=== PATIENT | male | born 1960 | race Hispanic/Latino ===

== ENCOUNTER 2018-02-12 11:12 | Emergency (ER) | payer OTHER ==
[2018-02-12] MEDS ORDERED: NA CHLORIDE 0.9% 1,000 ML ONE (12:50)
[2018-02-12] MEDS ORDERED: ONDANSETRON 4 MG/2 ML VIAL ONE (12:50)
[2018-02-12] MEDS ORDERED: MORPHINE 4 MG/ML SYR ONE (12:51)
[2018-02-12 12:56] LABS: Absolute Lymphocytes (CBC) 2.3 K/uL (0.7-4.9); Absolute Monocytes 0.5 K/uL (0.1-1.3); Absolute Neutrophil 2.3 K/uL (1.8-8.0); Basophils % 1.1 % (0-1.3); Eosinophils % 5.1 % (0-4.4); Hematocrit 40.9 % (39.6-49.0); Lymphocytes % 42.5 % (15.3-44.8); MCH 33.2 pg (27.0-35.0); MCV 95.8 fL (80-100); MPV 8.3 fL (7.6-11.3); Monocytes % 9.5 % (3.3-12.3); RBC Red Blood Cell Count 4.27 M/uL (4.33-5.43)
--- NOTE | 2018-02-12 13:02 | RAD REPORT ---
EXAM DESCRIPTION: US - Abdomen Exam Limited - 02/12/2018 12:55 pm CLINICAL HISTORY: Abdominal pain. COMPARISON: None. FINDINGS: The gallbladder wall is not thickened. A gallstone is not seen. The biliary tree is normal caliber. IMPRESSION: Unremarkable gallbladder ultrasound.
[2018-02-12 13:12] LABS: Bilirubin Direct 0.1 mg/dL (0-0.2); Bilirubin Total 0.3 mg/dL (0.2-1.0); Potassium 4.3 mmol/L (3.5-5.1); Protein, Total 7.8 g/dL (6.4-8.2)
--- NOTE | 2018-02-12 14:08 | RAD REPORT ---
EXAM DESCRIPTION: CT - Abdomen Pelvis W Contrast - 02/12/2018 1:42 pm CLINICAL HISTORY: Abdominal pain/right upper quadrant pain COMPARISON: none. TECHNIQUE: Computed axial tomography of the abdomen pelvis was obtained. 100 cc Isovue-300 was admin istered intravenously. Oral contrast was not requested which limits evaluation of bowel. All CT scans are performed using dose optimization technique as appropriate and may include automated exposure control or mA/KV adjustment according to patient size. FINDINGS: The liver, spleen, pancreas, adrenal and kidneys appear unremarkable. There is no evidence of diverticulitis. The appendix is normal. Left inguinal hernia contains fat. The wall of the stomach appears mildly thickened IMPRESSION: Mild thickening of the wall of the stomach may be secondary to gastritis or incomplete d istention.
--- NOTE | 2018-02-12 14:54 | EDPHYS ---
Physician Documentation [facility] Name: Harry Chandler Age: 57 yrs Sex: Male : 1960 Arrival Date: 02/12/2018 Time: 11:14 Bed 17 Private MD: Out, [facility] ED Physician Elmer Kirby HPI: 02/12 13:33 This 57 yrs old Male presents to ER via Ambulatory with complaints of kb Abdominal Pain. 13:33 The patient has not experienced similar symptoms in the past. The patient has not kb recently seen a physician. 13:33 The patient presents with abdominal pain in the right upper quadrant. Onset: The kb symptoms/episode began/occurred 1 week(s) ago, and became worse. The symptoms do not radiate. Associated signs and symptoms: none. The symptoms are described as constant. Modifying factors: The symptoms are alleviated by nothing, the symptoms are aggravated by pressure. Severity of pain: At its worst the pain was moderate in the emergency department the pain is unchanged. Historical: - Allergies: 11:47 No Known Allergies; aj - Home Meds: 11:47 None [Active]; aj - PMHx: 11:47 None; aj - PSHx: 11:47 None; aj - Immunization history:: Adult Immunizations unknown. - Social history:: Smoking status: Patient/guardian denies using tobacco, Patient uses alcohol, weekly. - Ebola Screening: : Patient negative for fever greater than or equal to 101.5 degrees Fahrenheit, and additional compatible Ebola Virus Disease symptoms Patient denies exposure to infectious person Patient denies travel to an Ebola-affected area in the 21 days before illness onset No symptoms or risks identified at this time. ROS: 13:33 Constitutional: Negative for fever, chills, and weight loss, ENT: Negative for injury, kb pain, and discharge, Neck: Negative for injury, pain, and swelling, Cardiovascular: Negative for chest pain, palpitations, and edema, Respiratory: Negative for shortness of breath, cough, wheezing, and pleuritic chest pain, Back: Negative for injury and pain, : Negative for injury, bleeding, discharge, and swelling, MS/Extremity: Negative for injury and deformity, Skin: Negative for injury, rash, and discoloration, Neuro: Negative for headache, weakness, numbness, tingling, and seizure. 13:33 Abdomen/GI: Positive for abdominal pain, Negative for nausea, vomiting, and diarrhea. Exam: 13:33 Constitutional: This is a well developed, well nourished patient who is awake, alert, kb and in no acute distress. Head/Face: Normocephalic, atraumatic. Chest/axilla: Normal chest wall appearance and motion. Nontender with no deformity. No lesions are appreciated. Cardiovascular: Regular rate and rhythm with a normal S1 and S2. No gallops, murmurs, or rubs. Normal PMI, no JVD. No pulse deficits. Respiratory: Lungs have equal breath sounds bilaterally, clear to auscultation and percussion. No rales, rhonchi or wheezes noted. No increased work of breathing, no retractions or nasal flaring. Back: No spinal tenderness. No costovertebral tenderness. Full range of motion. Skin: Warm, dry with normal turgor. Normal color with no rashes, no lesions, and no evidence of cellulitis. MS/ Extremity: Pulses equal, no cyanosis. Neurovascular intact. Full, normal range of motion. Neuro: Awake and alert, GCS 15, oriented to person, place, time, and situation. Cranial nerves II-XII grossly intact. Motor strength 5/5 in all extremities. Sensory grossly intact. Cerebellar exam normal. Normal gait. 13:33 Abdomen/GI: Inspection: abdomen appears normal, Bowel sounds: normal, in all quadrants, Palpation: soft, in all quadrants, moderate abdominal tenderness, in the right upper quadrant. Vital Signs: 11:47 BP 141 / 88; Pulse 54; Resp 16; Temp 97.8; Pulse Ox 100% on R/A; Weight 79.38 kg; aj Height 5 ft. 7 in. (170.18 cm); 15:31 BP 136 / 88; Pulse 60; Resp 17; Temp 97.9; Pulse Ox 100% ; ja1 11:47 Body Mass Index 27.41 (79.38 kg, 170.18 cm) aj MDM: 12:21 Patient medically screened. kb 13:33 Data reviewed: vital signs, nurses notes. Data interpreted: Pulse oximetry: on room air kb is 100 %. Interpretation: normal. 14:41 Counseling: I had a detailed discussion with the patient and/or guardian regarding: the kb historical points, exam findings, and any diagnostic results supporting the discharge/admit diagnosis, lab results, radiology results, the need for outpatient follow up, a family practitioner, to return to the emergency department if symptoms worsen or persist or if there are any questions or concerns that arise at home. 02/12 12:24 Order name: Amylase, Serum; Complete Time: 13:22 kb 02/12 12:24 Order name: Basic Metabolic Panel; Complete Time: 13:22 kb 02/12 12:24 Order name: CBC with Diff; Complete Time: 13:02 kb 02/12 12:24 Order name: Hepatic Function; Complete Time: 13:22 kb 02/12 12:24 Order name: Lipase; Complete Time: 13:22 kb 02/12 12:45 Order name: Urine Dipstick--Ancillary (enter results); Complete Time: 15:27 eb 02/12 12:24 Order name: IV Saline Lock; Complete Time: 12:43 kb 02/12 12:24 Order name: Labs collected and sent; Complete Time: 12:43 kb 02/12 12:28 Order name: US Abdomen Limited; Complete Time: 13:03 kb 02/12 13:23 Order name: CT Abd/Pelvis - W/Contrast; Complete Time: 14:13 kb 02/12 12:24 Order name: Urine Dipstick-Ancillary (obtain specimen); Complete Time: 14:02 kb Administered Medications: 13:10 Drug: Zofran 4 mg Route: IVP; Site: right antecubital; ja1 15:32 Follow up: Response: Nausea is decreased ja1 13:10 Drug: morphine 4 mg Route: IVP; Site: right antecubital; ja1 15:32 Follow up: Response: Pain is decreased ja1 13:24 Drug: NS 0.9% 1000 ml Route: IV; Rate: 1000 ml; Site: right antecubital; ja1 14:30 Follow up: IV Status: Completed infusion iw 15:30 Drug: ProTONIX 40 mg Route: IVP; Site: right antecubital; ja1 15:50 Follow up: Response: No adverse reaction iw Disposition: 18:15 Co-signature as Attending Physician, Elmer Kirby MD I agree with the assessment and kdr plan of care. Disposition: 02/12/18 14:54 Discharged to Home. Impression: Upper abdominal pain, unspecified. - Condition is Stable. - Discharge Instructions: Abdominal Pain, Adult, [id number]. - Prescriptions for Bentyl 20 mg Oral Tablet - take 1 tablet by ORAL route every 6 hours As needed; 20 tablet. - Medication Reconciliation Form, Thank You Letter, Antibiotic Education, Prescription Opioid Use form. - Follow up: Emergency Department; When: As needed; Reason: Worsening of condition. Follow up: Private Physician; When: 2 - 3 days; Reason: Recheck today's complaints, Continuance of care, Re-evaluation by your physician. Signatures: Dispatcher [employer] EDMS Aria Bennett, SPEECH ASSISTANT-C SPEECH ASSISTANT-CkTejal Trejo, RN RN aj Elmer Kirby MD MD kdr Williams, Irene, RN RN iw Livan Wynn RN RN ja1 Corrections: (The following items were deleted from the chart) 15:54 14:54 02/12/2018 14:54 Discharged to Home. Impression: Upper abdominal pain, iw unspecified. Condition is Stable. Discharge Instructions: Abdominal Pain, Adult, Kwhe-ow-Tyia. Prescriptions for Bentyl 20 mg Oral Tablet - take 1 tablet by ORAL route every 6 hours As needed; 20 tablet. and Forms are Medication Reconciliation Form, Thank You Letter, Antibiotic Education, Prescription Opioid Use. Follow up: Emergency Department; When: As needed; Reason: Worsening of condition. Follow up: Private Physician; When: 2 - 3 days; Reason: Recheck today's complaints, Continuance of care, Re-evaluation by your physician. kb
--- NOTE | 2018-02-12 14:54 | ER ---
Nurse's Notes [facility] Name: Harry Chandler Age: 57 yrs Sex: Male : 1960 Arrival Date: 02/12/2018 Time: 11:14 Bed 17 Private MD: Out, [facility] Diagnosis: Upper abdominal pain, unspecified Presentation: 02/12 11:46 Presenting complaint: Patient states: RUQ abdominal pain that started 1 week ago. aj Reports pain is not affected by eating. Denies N/V. Transition of care: patient was not received from another setting of care. Onset of symptoms was February 06, 2018. Risk Assessment: Do you want to hurt yourself or someone else? Patient reports no desire to harm self or others. Initial Sepsis Screen: Does the patient meet any 2 criteria? No. Patient's initial sepsis screen is negative. Does the patient have a suspected source of infection? No. Patient's initial sepsis screen is negative. Care prior to arrival: None. 11:46 Method Of Arrival: Ambulatory 11:46 Acuity: TITA 3 Triage Assessment: 11:47 General: Appears in no apparent distress. comfortable, Behavior is calm, cooperative, aj appropriate for age. Pain: Complains of pain in right upper quadrant. Neuro: Level of Consciousness is awake, alert, obeys commands, Oriented to person, place, time, situation, Appropriate for age. Respiratory: Airway is patent Respiratory effort is even, unlabored, Respiratory pattern is regular, symmetrical. GI: Abdomen is tender to palpation in epigastric area and right upper quadrant Reports upper abdominal pain. Derm: Skin is intact, is healthy with good turgor, Skin is pink, warm \T\ dry. normal. Historical: - Allergies: 11:47 No Known Allergies; aj - Home Meds: 11:47 None [Active]; aj - PMHx: 11:47 None; aj - PSHx: 11:47 None; aj - Immunization history:: Adult Immunizations unknown. - Social history:: Smoking status: Patient/guardian denies using tobacco, Patient uses alcohol, weekly. - Ebola Screening: : Patient negative for fever greater than or equal to 101.5 degrees Fahrenheit, and additional compatible Ebola Virus Disease symptoms Patient denies exposure to infectious person Patient denies travel to an Ebola-affected area in the 21 days before illness onset No symptoms or risks identified at this time. Screenin:50 Abuse screen: Denies threats or abuse. Denies injuries from another. Nutritional iw screening: No deficits noted. Tuberculosis screening: No symptoms or risk factors identified. Fall Risk Assessment: 14:30 General: Appears in no apparent distress. comfortable, Behavior is calm, cooperative. iw Pain: Complains of pain in epigastric area and right upper quadrant. Neuro: Level of Consciousness is awake, alert, obeys commands, Oriented to person, place, time, situation, Moves all extremities. Full function. Cardiovascular: Patient's skin is warm and dry. GI: Bowel sounds present X 4 quads. Reports lower abdominal pain, upper abdominal pain. GI: Abd is soft X 4 quads. Derm: Skin is intact, is healthy with good turgor. Musculoskeletal: Range of motion: intact in all extremities. 15:34 Reassessment: Patient appears in no apparent distress at this time. Patient and/or iw family updated on plan of care and expected duration. Pain level reassessed. Patient is alert, oriented x 3, equal unlabored respirations, skin warm/dry/pink. Vital Signs: 11:47 BP 141 / 88; Pulse 54; Resp 16; Temp 97.8; Pulse Ox 100% on R/A; Weight 79.38 kg; aj Height 5 ft. 7 in. (170.18 cm); 15:31 BP 136 / 88; Pulse 60; Resp 17; Temp 97.9; Pulse Ox 100% ; ja1 11:47 Body Mass Index 27.41 (79.38 kg, 170.18 cm) ED Course: 11:14 Patient arrived in ED. sb2 11:14 Out, of Town is Private Physician. sb2 11:47 Triage completed. aj 11:47 Arm band placed on right wrist. Patient placed in waiting room, Patient notified of wait time. 12:21 [facility] kb 12:21 Elmer Kirby MD is Attending Physician. kb 12:41 Livan Wynn, TRAN is Primary Nurse. ja1 12:43 Initial lab(s) drawn, by pa, sent to lab. Inserted saline lock: 20 gauge in right em1 antecubital area, using aseptic technique. Blood collected. 12:46 Patient taken to ultrasound. via wheelchair. aa4 12:56 US Abdomen Limited In Process Unspecified. EDMS 13:42 CT Abd/Pelvis - W/Contrast In Process Unspecified. EDMS 14:30 Patient has correct armband on for positive identification. iw 15:30 No provider procedures requiring assistance completed. Patient did not have IV access ja1 during this emergency room visit. IV discontinued, intact, bleeding controlled, No redness/swelling at site. Pressure dressing applied. Administered Medications: 13:10 Drug: Zofran 4 mg Route: IVP; Site: right antecubital; ja1 15:32 Follow up: Response: Nausea is decreased ja1 13:10 Drug: morphine 4 mg Route: IVP; Site: right antecubital; ja1 15:32 Follow up: Response: Pain is decreased ja1 13:24 Drug: NS 0.9% 1000 ml Route: IV; Rate: 1000 ml; Site: right antecubital; ja1 14:30 Follow up: IV Status: Completed infusion iw 15:30 Drug: ProTONIX 40 mg Route: IVP; Site: right antecubital; ja1 15:50 Follow up: Response: No adverse reaction iw Outcome: 14:53 Discharged to home ambulatory. iw 14:53 Condition: good 14:53 Discharge instructions given to patient, family, Instructed on discharge instructions, follow up and referral plans. medication usage, Demonstrated understanding of instructions, follow-up care, medications, Prescriptions given X 1. 14:54 Discharge ordered by . kb 15:54 Patient left the ED. iw Signatures: Dispatcher [employer] EDNC Aria Bennett, ERICA-C GYPSUM ROOFER-CkTejal Trejo RN Ann Burks RN RN iw Frazier, Amanda aa4 Juan Ackerman em1 Livan Wynn RN RN [email or web address] Tali [email or web address] Corrections: (The following items were deleted from the chart) 15:54 14:53 Discharge instructions given to patient, family, Instructed on discharge iw instructions, follow up and referral plans. medication usage, Demonstrated understanding of instructions, follow-up care, medications, Prescriptions given X 2, iw
[2018-02-12 15:18] LABS: Urine Blood TRACE (NEG); Urine Glucose NEGATIVE (NEG); Urine Protein 2+ (NEG); Urine pH 5.5 (5.0-7.0)
[2018-02-12] MEDS ORDERED: PANTOPRAZOLE 40 MG INJ ONE (15:29)
[2018-02-12 16:08] VITALS: O2SAT 100
[2018-02-12 16:10] VITALS: BP 136/88; TEMP 97.9
== END 2018-02-12 15:54 | disposition home or self-care (01) ==
LOC: ER 11:12
DX: R10.11 Right upper quadrant pain (principal)
CPT/HCPCS: 36415; 74177; 76705; 80048; 80076; 81003; 82150; 83690; 85025; 96361; 96374; 96375; 99284; C9113; J2405; J7030; Q9967

== ENCOUNTER 2020-07-03 10:11 | Emergency (ER) | payer SELFPAY ==
[2020-07-03] MEDS ORDERED: BENZONATATE 100 MG CAP PO ONE (12:56)
[2020-07-03] MEDS ORDERED: IBUPROFEN 400 MG TAB ONE (12:56)
--- NOTE | 2020-07-03 13:36 | RAD REPORT ---
EXAM DESCRIPTION: Anni Single View07/03/2020 1:24 pm CLINICAL HISTORY: Cough COMPARISON: 2017 FINDINGS: Lungs are mildly hazy. Heart is normal size IMPRESSION: Lungs are mildly hazy which may indicate pneumonia
[2020-07-03 14:14] LABS: SARS-COV-2 RT PCR POSITIVE (NEGATIVE)
--- NOTE | 2020-07-03 14:40 | EDPHYS ---
Physician Documentation [facility] Name: Harry Chandler Age: 60 yrs Sex: Male : 1960 Arrival Date: 07/03/2020 Time: 10:16 Bed 18 Private MD: ED Physician Carlo Donald HPI: 07/03 12:20 This 60 yrs old Male presents to ER via Ambulatory with complaints of Painful cp Cough. 12:20 The patient or guardian reports cough, that is intermittent, with no sputum. Onset: The cp symptoms/episode began/occurred 4 day(s) ago. Severity of symptoms: in the emergency department the symptoms are unchanged. Associated signs and symptoms: Pertinent positives: low back pain, Pertinent negatives: chest pain, diarrhea, fever, sore throat, vomiting. Historical: - Allergies: 10:29 No Known Allergies; ss - PMHx: 10:29 High Cholesterol; ss - PSHx: 10:29 None; ss - Immunization history:: Adult Immunizations up to date. - Social history:: Smoking status: Patient denies any tobacco usage or history of. ROS: 12:30 Constitutional: Positive for body aches, Negative for chills, fever, poor PO intake. cp 12:30 Eyes: Negative for injury, pain, redness, and discharge. cp 12:30 ENT: Negative for ear pain, sore throat, difficulty swallowing, difficulty handling secretions. 12:30 Cardiovascular: Negative for chest pain, edema, palpitations. 12:30 Respiratory: Positive for cough, "sounds productive", Negative for shortness of breath, wheezing. 12:30 Abdomen/GI: Negative for abdominal pain, nausea, vomiting, and diarrhea. 12:30 Back: Positive for pain at rest, pain with movement, of the low back area. 12:30 : Negative for urinary symptoms, testicular pain 12:30 Neuro: Negative for altered mental status, headache, numbness, weakness. 12:30 All other systems are negative. Exam: 12:35 Constitutional: The patient appears in no acute distress, alert, awake, cp non-diaphoretic, non-toxic, well developed, well nourished. 12:35 Head/Face: Normocephalic, atraumatic. cp 12:35 Eyes: Periorbital structures: appear normal, Conjunctiva: normal, no exudate, no injection, Sclera: no appreciated abnormality, Lids and lashes: appear normal, bilaterally. 12:35 ENT: External ear(s): are unremarkable, Ear canal(s): are normal, clear, TM's: dullness, bilaterally, Nose: is normal, Mouth: Lips: moist, Oral mucosa: pink and intact, moist, Posterior pharynx: Airway: no evidence of obstruction, patent, Tonsils: are normal in appearance, erythema, is not appreciated, exudate, is not appreciated. 12:35 Neck: ROM/movement: is normal, is supple, no meningismus, no nuchal rigidity. 12:35 Chest/axilla: Inspection: normal, Palpation: is normal, no crepitus, no tenderness. 12:35 Cardiovascular: Rate: bradycardic, Rhythm: regular, Edema: is not appreciated, JVD: is not appreciated. 12:35 Respiratory: the patient does not display signs of respiratory distress, Respirations: normal, no use of accessory muscles, no retractions, labored breathing, is not present, Breath sounds: bronchial sounds, that are mild, are heard diffusely, decreased breath sounds, are not appreciated, stridor, is not appreciated, + upper airway congestion. wheezing: is not appreciated. 12:35 Abdomen/GI: Inspection: abdomen appears normal, Palpation: abdomen is soft and non-tender, in all quadrants. 12:35 Back: pain, that is mild, of the low back area, ROM is normal. 12:35 Skin: no rash present. 12:35 Neuro: Orientation: to person, place \\T\\ time. Mentation: is normal, Motor: moves all fours, strength is normal, Sensation: is normal. Vital Signs: 10:27 BP 110 / 70; Pulse 63; Resp 17; Temp 97.3(TE); Pulse Ox 98% on R/A; Weight 88.45 kg; ss Height 5 ft. 7 in. (170.18 cm); Pain 0/10; 12:30 BP 136 / 75; Pulse 51; Resp 17; Pulse Ox 97% on R/A; ll1 14:30 BP 131 / 67; Pulse 53; Resp 16; Pulse Ox 98% on R/A; ll1 15:05 BP 137 / 80; Pulse 57; Resp 17; Pulse Ox 100% on R/A; ll1 10:27 Body Mass Index 30.54 (88.45 kg, 170.18 cm) ss MDM: 12:15 Patient medically screened. cp 13:00 Differential Diagnosis: Bronchitis Influenza Viral Syndrome Pneumonia Other COVID-19. cp 14:40 Data reviewed: vital signs, nurses notes, lab test result(s), radiologic studies, plain cp films. 14:40 Test interpretation: by ED physician or midlevel provider: plain radiologic studies. cp Counseling: I had a detailed discussion with the patient and/or guardian regarding: the historical points, exam findings, and any diagnostic results supporting the discharge/admit diagnosis, lab results, radiology results, to return to the emergency department if symptoms worsen or persist or if there are any questions or concerns that arise at home. ED course: VSS. Patient appears non-toxic and no signs of respiratory distress. Will discharge to home for continued monitoring. 07/03 12:16 Order name: Urine Microscopic Only cp 07/03 12:34 Order name: XRAY Chest (1 view); Complete Time: 13:38 cp 07/03 14:14 Order name: COVID-19/FLU A+B EDMS 07/03 14:41 Order name: Urine Dipstick--Ancillary (enter results) bd 07/03 12:16 Order name: Urine Dipstick-Ancillary (obtain specimen); Complete Time: 15:09 cp Administered Medications: 12:44 Drug: Tessalon Perle 200 mg Route: PO; ll1 15:09 Follow up: Response: No adverse reaction; RASS: Alert and Calm (0) ll1 12:44 Drug: Ibuprofen 800 mg Route: PO; ll1 15:09 Follow up: Response: No adverse reaction; Pain is decreased; RASS: Alert and Calm (0) ll1 Disposition: 07/04 11:07 Co-signature as Attending Physician, Carlo Donald MD I agree with the assessment and kenneth plan of care. Disposition: 07/03/20 14:40 Discharged to Home. Impression: Pneumonia due to other specified infectious organisms, Coronavirus infection, unspecified. - Condition is Stable. - Discharge Instructions: Community-Acquired Pneumonia, Adult, COVID-19. - Prescriptions for ivermectin 3 mg Oral tablet - take 6 tablet by ORAL route every other day x2 dose; 12 tablet. Zithromax Z- Frankie 250 mg Oral Tablet - take 1 tablet by ORAL route as directed for 5 days Day 1 - take two (2) tablets one time. Day 2, 3, 4 , 5 take one (1) tablet once daily.; 6 tablet. Prednisone 20 mg Oral Tablet - take 1 tablet by ORAL route every 12 hours for 10 days then take 1/2 tablet every 12 hours for 5 days; 15 tablet. Albuterol Sulfate 90 mcg/actuation - inhale 1-2 puff by INHALATION route every 4-6 hours; 1 Inhaler. - Medication Reconciliation Form, Thank You Letter, Antibiotic Education, Prescription Opioid Use, Work release form form. - Follow up: Private Physician; When: 2 - 3 days; Reason: Recheck today's complaints. - Problem is new. - Symptoms have improved. Signatures: Dispatcher [employer] EDMS Carlo Donald MD MD cha Smirch, Shelby RN RN ss Carlo Palma PA PA cp Lewis, Lynsay, RN RN ll1 Corrections: (The following items were deleted from the chart) 07/03 12:51 12:16 Influenza Screen (A \\T\\ B)+BA.LAB.BRZ ordered. EDOK EDMS 12:51 12:16 CORONAVIRUS+MR.LAB.BRZ ordered. EDOK EDMS 15:12 14:40 07/03/2020 14:40 Discharged to Home. Impression: Pneumonia due to other specified ll1 infectious organisms; Coronavirus infection, unspecified. Condition is Stable. Forms are Medication Reconciliation Form, Thank You Letter, Antibiotic Education, Prescription Opioid Use. Follow up: Private Physician; When: 2 - 3 days; Reason: Recheck today's complaints. Problem is new. Symptoms have improved. cp
--- NOTE | 2020-07-03 14:40 | ER ---
Nurse's Notes [facility] Name: Harry Chandler Age: 60 yrs Sex: Male : 1960 Arrival Date: 07/03/2020 Time: 10:16 Bed 18 Private MD: Diagnosis: Pneumonia due to other specified infectious organisms;Coronavirus infection, unspecified Presentation: 07/03 10:27 Chief complaint: Patient states: Pt reports painful cough and pain with deep breathing ss that began 4 days ago. Also c/o low back pain. Coronavirus screen: Client presents with at least one sign or symptom that may indicate coronavirus-19. Standard/surgical mask placed on the client. Ebola Screen: Patient denies exposure to infectious person. Patient denies travel to an Ebola-affected area in the 21 days before illness onset. Initial Sepsis Screen: Does the patient meet any 2 criteria? No. Patient's initial sepsis screen is negative. Does the patient have a suspected source of infection? No. Patient's initial sepsis screen is negative. Risk Assessment: Do you want to hurt yourself or someone else? Patient reports no desire to harm self or others. Onset of symptoms was June 30, 2020. 10:27 Method Of Arrival: Ambulatory ss 10:27 Acuity: TITA 3 ss Historical: - Allergies: 10:29 No Known Allergies; ss - PMHx: 10:29 High Cholesterol; ss - PSHx: 10:29 None; ss - Immunization history:: Adult Immunizations up to date. - Social history:: Smoking status: Patient denies any tobacco usage or history of. Screenin:05 Abuse screen: Denies threats or abuse. Nutritional screening: No deficits noted. ll1 Tuberculosis screening: No symptoms or risk factors identified. Fall Risk Total Busby Fall Scale indicates No Risk (0-24 pts). Assessment: 10:30 General: Appears in no apparent distress. Behavior is calm, cooperative, appropriate ll1 for age. Pain: Complains of pain in chest Pain does not radiate. Quality of pain is described as aching, Pain began with cough Aggravated by cough. Neuro: No deficits noted. Cardiovascular: Denies shortness of breath. Respiratory: Reports cough that is Airway is patent Trachea midline Respiratory effort is even, unlabored, Respiratory pattern is regular, symmetrical, Breath sounds are clear bilaterally. GI: No deficits noted. 11:30 Reassessment: No changes from previously documented assessment. Patient and/or family ll1 updated on plan of care and expected duration. Pain level reassessed. 12:30 Reassessment: No changes from previously documented assessment. Patient and/or family ll1 updated on plan of care and expected duration. Pain level reassessed. Patient is alert, oriented x 3, equal unlabored respirations, skin warm/dry/pink. 13:30 Reassessment: No changes from previously documented assessment. Patient and/or family ll1 updated on plan of care and expected duration. Pain level reassessed. 14:30 Reassessment: No changes from previously documented assessment. Patient and/or family ll1 updated on plan of care and expected duration. Pain level reassessed. 15:08 Reassessment: No changes from previously documented assessment. Patient and/or family ll1 updated on plan of care and expected duration. Pain level reassessed. Vital Signs: 10:27 BP 110 / 70; Pulse 63; Resp 17; Temp 97.3(TE); Pulse Ox 98% on R/A; Weight 88.45 kg; ss Height 5 ft. 7 in. (170.18 cm); Pain 0/10; 12:30 BP 136 / 75; Pulse 51; Resp 17; Pulse Ox 97% on R/A; ll1 14:30 BP 131 / 67; Pulse 53; Resp 16; Pulse Ox 98% on R/A; ll1 15:05 BP 137 / 80; Pulse 57; Resp 17; Pulse Ox 100% on R/A; ll1 10:27 Body Mass Index 30.54 (88.45 kg, 170.18 cm) ED Course: 10:16 Patient arrived in ED. mr 10:29 Triage completed. ss 10:29 Arm band placed on right wrist. ss 12:12 Kalie Yoon, TRAN is Primary Nurse. ll1 12:14 Carlo Palma PA is PHCP. cp 12:14 Carlo Donald MD is Attending Physician. cp 13:23 XRAY Chest (1 view) In Process Unspecified. EDMS 15:09 Patient has correct armband on for positive identification. Bed in low position. Call ll1 light in reach. Side rails up X 1. Pulse ox on. NIBP on. 15:09 No provider procedures requiring assistance completed. Patient did not have IV access ll1 during this emergency room visit. Patient maintains SpO2 saturation greater than 95% on room air. Administered Medications: 12:44 Drug: Tessalon Perle 200 mg Route: PO; ll1 15:09 Follow up: Response: No adverse reaction; RASS: Alert and Calm (0) ll1 12:44 Drug: Ibuprofen 800 mg Route: PO; ll1 15:09 Follow up: Response: No adverse reaction; Pain is decreased; RASS: Alert and Calm (0) ll1 Outcome: 14:40 Discharge ordered by . paul 15:11 Discharged to home ambulatory. ll1 15:11 Condition: stable 15:11 Discharge instructions given to patient, Instructed on discharge instructions, follow up and referral plans. medication usage, Demonstrated understanding of instructions, follow-up care, medications, Prescriptions given X 4. 15:12 Patient left the ED. ll1 Signatures: Dispatcher [employer] [facility]TX SiddharthaMarian Shelby, RN RN ss Page, Corey, PA PA cp Lewis, Lynsay RN RN 1
[2020-07-03 15:20] VITALS: TEMP 97.3
[2020-07-03 15:23] VITALS: BP 137/80; O2SAT 100
[2020-07-03 16:01] LABS: Urine Bacteria NONE SEEN /HPF (NONE SEEN); Urine Mucus HEAVY /HPF (NONE SEEN); Urine RBC <5 /HPF (NONE SEEN)
[2020-07-03 16:31] LABS: Urine Blood TRACE (NEG); Urine Glucose NEGATIVE (NEG); Urine Protein 2+ (NEG); Urine Specific Gravity 1.025 (1.005-1.030)
== END 2020-07-03 15:12 | disposition home or self-care (01) ==
LOC: ER 10:11
DX: U07.1 COVID-19 (principal); J16.8 Pneumonia due to other specified infectious organisms; E78.00 Pure hypercholesterolemia, unspecified
CPT/HCPCS: 0240U; 71045; 81003; 81015; 99284